=== PATIENT | male | born 2000 | race Caucasian/White ===

== ENCOUNTER 2022-08-26 13:54 | Emergency (ER) | payer BC ==
[~2022-08-26] VITALS: Ht 193 cm; Wt 86.2 kg
[2022-08-26 14:42] LABS: BASOPHILS ABSOLUTE AUTO 0.08 K/mm3 (0.00-0.23); BASOPHILS PERCENT AUTO 1 % (0-2); EOSINOPHILS ABSOLUTE AUTO 0.08 K/mm3 (0.00-0.68); EOSINOPHILS PERCENT AUTO 1 % (0-6); Hematocrit 43.3 % (37.0-53.0); IMMATURE GRAN ABSOLUTE AUTO 0.02 K/mm3 (0.00-0.10); IMMATURE GRAN PERCENT AUTO 0 % (0-1); LYMPHOCYTES ABSOLUTE AUTO 1.92 K/mm3 (0.84-5.20); LYMPHOCYTES PERCENT AUTO 28 % (21-46); MONOCYTES PERCENT AUTO 7 % (4-13); Mean Corpuscular HGB 31.3 pg (26.0-34.0); Mean Corpuscular HGB Conc 34.6 g/dL (31.5-36.5); Mean Corpuscular Volume 90 fL (80-100); Mean Platelet Volume 9.5 fL (9.1-12.4); NEUTROPHILS ABSOLUTE AUTO 4.22 K/mm3 (1.96-9.15); NEUTROPHILS PERCENT AUTO 62 % (41-73); Platelet Count 214 K/mm3 (150-400); RDW Coefficient Variation 11.8 % (11.7-14.2); RDW Standard Deviation 39.5 fL (35.1-46.3); Red Blood Cell Count 4.79 M/mm3 (4.30-5.90); White Blood Cell Count 6.82 K/mm3 (4.00-11.30)
[2022-08-26 15:07] LABS: Albumin, Blood 4.3 g/dL (3.4-5.0); Albumin/Globulin Ratio 1.4 (0.8-1.8); Bilirubin, Total 0.9 mg/dL (0.1-1.0); Bun/Creatinine Ratio 16.5 (12.0-20.0); Calcium, Blood 8.9 mg/dL (8.5-10.1); Creatinine, Blood 1.03 mg/dL (0.60-1.20); Magnesium, Blood 2.1 mg/dL (1.6-2.4); Potassium, Blood 3.3 mmol/L (3.5-5.5); Total Protein, Blood 7.3 g/dL (6.4-8.2)
[2022-08-26 17:27] VITALS: BP 122/67
[2022-08-26] MEDS ORDERED: HYDHCL25 PO (17:32)
== END 2022-08-26 17:49 | disposition home or self-care (01) ==
LOC: ER 13:54
PROVIDERS: Physician Assistant
DX: R42 Dizziness and giddiness (principal)
CPT/HCPCS: 80053; 83690; 83735; 85025; 93005; 93010; 96374; 99284-25; J2060; J7030

== ENCOUNTER 2022-08-27 20:29 | Emergency (ER) | payer BC ==
[~2022-08-27] VITALS: Ht 193 cm; Wt 86.2 kg
[~2022-08-27 20:29] MED LIST: HYDHCL25 PO
[2022-08-27 21:41] LABS: Magnesium, Blood 2.4 mg/dL (1.6-2.4); Thyroid Stimulating Hormone 1.8 uIU/mL (0.360-4.800)
[2022-08-28] MEDS ORDERED: POTA10T PO (00:18)
[2022-08-28 00:30] VITALS: BP 116/64
== END 2022-08-28 01:20 | disposition home or self-care (01) ==
LOC: ER 20:29
PROVIDERS: Student in an Organized Health Care Education/Training Program
DX: R53.83 Other fatigue (principal); E87.6 Hypokalemia; Z79.899 Other long term (current) drug therapy
CPT/HCPCS: 71045; 83735; 84443; A9270